=== PATIENT | female | born 1995 | race Hispanic/Latino ===

== ENCOUNTER 2021-08-18 14:51 | Emergency (ER) | payer OTHER, SELFPAY ==
[2021-08-18 15:21] VITALS: BP 133/65; PULSE 69; RESP 18; TEMP 36.6; O2SAT 100
--- NOTE | 2021-08-18 15:38 | ED.URI ---
HPI - URI/Sore Throat General Chief Complaint: Upper Respiratory Infection Stated Complaint: Flu sx Source: patient and RN notes reviewed Limitations: no limitations History of Present Illness HPI Narrative: The patient, a non-smoker/nondrinker on bipolar meds here with other sick children , presents for 1/2-week history of scratchy sore throat, sinus headache, nasal congestion and scant cough. No fever, earache, loss of taste/smell, CP, wheezing/sneezing, S OB. Symptoms are mild Related Data Home Medications Medication Instructions Recorded Confirmed aripiprazole 10 mg PO DAILY 08/18/21 08/18/21 escitalopram oxalate 5 mg PO DAILY 08/18/21 08/18/21 topiramate 25 mg PO DAILY 08/18/21 08/18/21 Allergies Allergy/AdvReac Type Severity Reaction Status Date / Time No Known Allergies Allergy Verified 08/18/21 15:44 Review of Systems Review of Systems: General/Constitutional: No weight loss,fever Eyes: N0: Redness,discharge Ears/Nose/Throat: No: Epistaxis,ear discharge Respiratory: Denies: Hemoptysis Gastrointestinal: No Vomiting, Bleeding-rectal Skin: No Lumps, eruption Neurologic: No Focal Weakness,Sz Hematologic: Denies: Petechiae/Purpura Psychiatric: No: Suicida ideationl All Other Systems: Reviewed and Negative [facility] Past Medical History Medical History (Updated 08/18/21 @ 16:33 by Chaim Hall MD) No significant past medical history Surgical History Surgical History Holiday teeth extracted Social History Social History Smoking status: Never smoker Alcohol intake: never Gender identity (if verbalized by the patient): Female Comments At time of signature, agree with nursing past medical, surgical, social and family history. There is no relevant family history pertinent to the presenting complaint Exam Narrative: General Appearance: Obese/ Well nourished EYE: PERRLA, Conjunctiva clear Ears: Auditory canal normal, TM normal Nose: Rhinorrhea, Mucousal erythema Mouth/Throat: MM moist, Uvula midline, Pharyngeal erythema Neck: Supple, No adenopathy Respiratory: No respiratory distress, Breath sounds equal, Clear to auscultation Cardiovascular: RRR, No JVD Musculoskeletal: Non tender, Normal strength Skin: Warm, Dry Neurological: A&O x3, CN II-XII intact Psychiatric: Normal mood, Normal affect Course Vital Signs Vital signs: Vital Signs Temperature 97.8 F 08/18/21 15:21 Pulse Rate 69 08/18/21 15:21 Respiratory Rate 18 08/18/21 15:21 Blood Pressure 133/65 08/18/21 15:21 Pulse Oximetry 100 08/18/21 15:21 Temperature 97.8 F 08/18/21 15:21 Pulse Rate 69 08/18/21 15:21 Respiratory Rate 18 08/18/21 15:21 Blood Pressure 133/65 08/18/21 15:21 Pulse Oximetry 100 08/18/21 15:21 MDM - URI/Sore Throat Lab Data Labs: Lab Results 08/18/21 Range/Units 14:29 POC SARS CoV-2 Ag Negative (Negative) Discharge Plan Discharge Clinical Impression: Sinus headache, Acute sore throat Patient Disposition: Home, Self-Care Condition: Stable Instructions: Pharyngitis (ED) Additional Instructions: Halve/decrease escitalopram to every other day -this whole week when taking this antibiotic Prescriptions: New azithromycin 250 mg tablet See Rx Instructions .ROUTE .COMPLEX Qty: 6 RF: 0 benzonatate [Tessalon Perles] 100 mg capsule 100 mg PO TID Qty: 20 RF: 1 azelastine 137 mcg (0.1 %) aerosol,spray 137 mcg NASAL Q12H Qty: 30 RF: 0 lidocaine HCl [Lidocaine Viscous] 2 % solution 5 ml MUCOUS MEM QID PRN (Reason: pain) Qty: 100 RF: 0 No Action topiramate 25 mg tablet 25 mg PO DAILY RF: 0 aripiprazole 10 mg tablet 10 mg PO DAILY RF: 0 escitalopram oxalate 5 mg tablet 5 mg PO DAILY RF: 0 Follow-up/Referrals: Hardik,Corinna Horta [facility] [Primary Care Provider] -
== END 2021-08-18 16:09 | disposition home or self-care (01) ==
PROVIDERS: Emergency Provider Emergency Medicine; PCP Nurse Practitioner Family
DX: J02.9 Acute pharyngitis, unspecified (principal); R51.9 Headache, unspecified; Z20.822 Contact with and (suspected) exposure to COVID-19; F41.9 Anxiety disorder, unspecified; F32.A Depression, unspecified
CPT/HCPCS: 87426; 99213; C9803; G0463